=== PATIENT | female | born 1955 | race Caucasian/White ===

== ENCOUNTER 2018-09-26 14:47 | Emergency (ER) | payer OTHER, BC ==
--- OUTSIDE RECORDS SUMMARY | 2018-09-26 14:48 | XMS REPORT ---
:1955 Author [facility] Address [address] [place] [address] Dr. [address] [place] [address] Care Team Providers Name Role Phone Unavailable Unavailable Unavailable Problems This patient has no known problems. Allergies, Adverse Reactions, Alerts This patient has no known allergies or adverse reactions. Medications This patient has no known medications.
--- OUTSIDE RECORDS SUMMARY | 2018-09-26 14:48 | XMS REPORT | Summary of Care ---
:1955 Author Organization [facility] Address [address] [place] [address] Care Team Providers Name Role Phone Irineo Horan MD Primary Care Provider Reason for Visit Reason Comments Back Pain onset with low back pain Encounter Details Date Type Department Care Team Description 09/12/2018 Office Visit [facility] Family Irineo Horan Strain of lumbar Medicine - Ham Slaughter MD region, initial [address] [facility] [address] [facility] [address] encounter ([place], [place]x) [phone] Allergies Active Allergy Reactions Severity Noted Date Comments Codeine Nausea and/or Vomiting 09/12/2018 Sulfa (Sulfonamide Antibiotics) Unknown - See comments 03/14/2015 documented as of this encounter (statuses as of 09/12/2018) Medications Medication Sig Dispensed Refills Start Date End Date Status RABEprazole 20 mg Take 1 tablet by 30 tablet 12 10/12/2017 Active tabletIndications: mouth daily. Gastroesophageal reflux disease with esophagitis lisinopril 5 mg Take 1 tablet by 180 tablet 3 06/30/2018 Active tabletIndications: mouth 2 (two) Atypical chest pain, times daily. Essential hypertension, LANDRUM (dyspnea on exertion) methylPREDNISolone Take 21 tablets 21 Each 0 09/12/2018 Active (MEDROL, TANMAY,) 4 mg by mouth tabletsIndications: SEE-INSTRUCTIONS Strain of lumbar region, . follow package initial encounter directions ketorolac 10 mg Take 1 tablet by 30 tablet 0 09/12/2018 Active tabletIndications: mouth every 6 Strain of lumbar region, (six) hours as initial encounter needed (back pain). documented as of this encounter (statuses as of 09/12/2018) Active Problems Problem Noted Date Chronic GERD 04/08/2017 Globus sensation 04/08/2017 Essential hypertension 05/21/2015 documented as of this encounter (statuses as of 09/12/2018) Social History Tobacco Use Types Packs/Day Years Used Date Never Smoker Smokeless Tobacco: Never Used Alcohol Use Drinks/Week oz/Week Comments Yes occasional Sex Assigned at Date Recorded Not on file Job Start Date Occupation Industry Not on file Not on file Not on file Travel History Travel Start Travel End No recent travel history available. documented as of this encounter Last Filed Vital Signs Vital Sign Reading Time Taken Comments Blood Pressure 115/76 09/12/2018 10:43 AM CDT Pulse 73 09/12/2018 10:43 AM CDT Temperature 36.7 C (98 F) 09/12/2018 10:43 AM CDT Respiratory Rate 16 09/12/2018 10:43 AM CDT Oxygen Saturation - - Inhaled Oxygen Concentration - - Weight 83.5 kg (184 lb) 09/12/2018 10:43 AM CDT Height 157.5 cm (5' 2") 09/12/2018 10:43 AM CDT Body Mass Index 33.65 09/12/2018 10:43 AM CDT documented in this encounter Progress Notes Irineo Horan MD - 09/12/2018 10:45 AM CDT CC: low back pain on right side Rosalva is a 63 year old female Back Pain Location: Lumbar spine Quality: Aching Duration: 4 days Chronicity: New Relieved by: Nothing Ineffective treatments: NSAIDs Allergies Allergen Reactions Codeine Nausea and/or Vomiting Sulfa (Sulfonamide Antibiotics) Unknown - See comments Current Outpatient Medications Medication Sig Dispense Refill lisinopril 5 mg tablet Take 1 tablet by mouth 2 (two) times daily. 180 tablet 3 RABEprazole 20 mg tablet Take 1 tablet by mouth daily. 30 tablet 12 No current facility-administered medications for this visit. Past Medical History: Diagnosis Date Hypertension Past Surgical History: Procedure Laterality Date SECTION REMOVAL OF OVARY(S) Social History Socioeconomic History Marital status: Spouse name: Not on file Number of children: Not on file Years of education: Not on file Highest education level: Not on file Occupational History Not on file Social Needs Financial resource strain: Not on file Food insecurity: Worry: Not on file Inability: Not on file Transportation needs: Medical: Not on file Non-medical: Not on file Tobacco Use Smoking status: Never Smoker Smokeless tobacco: Never Used Substance and Sexual Activity Alcohol use: Yes Comment: occasional Drug use: No Sexual activity: Not on file Lifestyle Physical activity: Days per week: Not on file Minutes per session: Not on file Stress: Not on file Relationships Social connections: Talks on phone: Not on file Gets together: Not on file Attends buddhism service: Not on file Active member of club or organization: Not on file Attends meetings of clubs or organizations: Not on file Relationship status: Not on file Intimate partner violence: Fear of current or ex partner: Not on file Emotionally abused: Not on file Physically abused: Not on file Forced sexual activity: Not on file Other Topics Concern Not on file 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 BP 115/76 (BP Location: Left arm, Patient Position: Sitting, BP CUFF SIZE: Adult Medium) | Pulse 73 | Temp 36.7 C (98 F) (Tympanic) | Resp 16 | Ht 5 ' 2" (1.575 m) | Wt 184 lb (83.5 kg) | BMI 33.65 kg/m Physical Exam Constitutional: She is oriented to person, place, and time. She appears well- developed and well-nourished. HENT: Head: Normocephalic and atraumatic. Eyes: Pupils are equal, round, and reactive to light. Conjunctivae are normal. Neck: Normal range of motion. Neck supple. No JVD present. No tracheal deviation present. No thyromegaly present. Cardiovascular: Normal rate, regular rhythm, normal heart sounds and intact distal pulses. Exam reveals no gallop and no friction rub. No murmur heard. Pulmonary/Chest: Effort normal and breath sounds normal. No respiratory distress. She has no wheezes. She has no rales. She exhibits no tenderness. Abdominal: Soft. Bowel sounds are normal. She exhibits no distension and no mass. There is no tenderness. There is no rebound and no guarding. Musculoskeletal: She exhibits no edema. Lumbar back: She exhibits tenderness (right mid lumbar) and pain. Lymphadenopathy: She has no cervical adenopathy. Neurological: She is alert and oriented to person, place, and time. Skin: Skin is warm and dry. Diagnosis: 1. Strain of lumbar region, initial encounter methylPREDNISolone (MEDROL, TANMAY, ) 4 mg tablets ketorolac 10 mg tablet Follow up: prn Patient Care Team: Irineo Horan MD as PCP - General ([facility]-FAMILY MEDICINE) Plan of care, desired health behaviors, goals,& medication discussed with patient. Education resources & self management tools provided and reviewed with AVS. Patient/guardian/family verbalized understanding & agrees to plan of care. Barriers to care: None Ability to manage care: Good documented in this encounter Plan of Treatment Date Type Specialty Care Team Description 07/06/2019 Office Visit Cardiology Alfredo Mckinnon MD [address] [phone] Health Maintenance Due Date Last Done Comments HEPATITIS C (HCV) SCREEN 1955 DTaP,Tdap,and Td Vaccines (1 1976 - Tdap) Zoster Recombinant Vaccine 08/29/2007 (SHINGRIX) (1 of 2) MAMMOGRAM 11/18/2017 11/18/2016 (Previously completed) INFLUENZA VACCINE 10/16/2018 PAP SMEAR 11/19/2019 11/18/2016 (Previously completed) COLONOSCOPY 02/01/2028 01/31/2018, 10/25/2013 (Previously completed) PNEUMOCOCCAL 0-64 YEARS Aged Out No longer eligible based COMBINED SERIES on patient's age to complete this topic documented as of this encounter Results Not on filedocumented in this encounter Visit Diagnoses Diagnosis Strain of lumbar region, initial encounter - Primary documented in this encounter Insurance Payer Benefit Plan Subscriber ID Effective Dates Phone Address Type / Group AETNA AETNA HMO [id number] 2013-Michel lainez [facility] [id number] 2017-Aleksandra [phone] [address] PPO/POS [place] - OUT OF nt 7 [id number] [place] [address] documented as of this encounter
--- OUTSIDE RECORDS SUMMARY | 2018-09-26 14:48 | XMS REPORT | Clinical Summary ---
:1955 Author Organization [facility] Address [address] [place] [address] Care Team Providers Name Role Phone Asked, No Pcp Primary Care Provider Unavailable Allergies Active Allergy Reactions Severity Noted Date Comments Morphine Other (See Comments) 09/01/2018 Vomiting, can't remember anything Sulfa (Sulfonamide Rash Low 03/14/2015 Antibiotics) Medications Medication Sig Dispensed Refills Start Date End Date Status lisinopril Take 5 mg by 3 07/04/2018 Active (PRINIVIL,ZESTRIL) 5 mg mouth 2 (two) tablet times a day. RABEprazole (ACIPHEX) 20 Take 20 mg by 12 08/01/2018 Active mg EC tablet mouth daily. multivitamin with Take 1 tablet 0 Active minerals (HAIR,SKIN AND by mouth daily. NAILS ORAL) multivit-min/folic Take 1 tablet 0 Active acid/[id number] (ALIVE by mouth daily. WOMEN'S GUMMY VITAMINS ORAL) diphenhydramine HCl Take 1 tablet 0 Active (ALLERGY ORAL) by mouth daily. Active Problems Not on file Encounters Date Type Specialty Care Team Description 09/23/2018 Orders Only General Surgery Summer Hogan Gastroesophageal reflux disease, esophagitis presence not specified (Primary Dx); ALYSSA Wood Hiatal hernia 09/01/2018 Office Visit General Surgery Sha Vee MD Hiatal hernia ( Primary Dx); Gastroesophageal reflux disease, esophagitis presence not specified 08/22/2018 Documentation General Surgery Summer Hogan MA 03/14/2018 Telephone General Surgery Sha Vee MD 03/14/2018 Telephone General Surgery Sha Vee MD after 09/25/2017 Family History Medical History Relation Name Comments Graves' disease Brother Dementia Father Hypertension Father Leukemia Father Liver disease Father Stroke Father Cancer Mother Hypertension Mother Heart attack Sister Hypertension Sister Relation Name Status Comments Brother Alive Father Mother Sister Alive Social History Tobacco Use Types Packs/Day Years Used Date Never Smoker Smokeless Tobacco: Never Used Alcohol Use Drinks/Week oz/Week Comments Yes Alcohol Habits Answer Date Recorded How often do you have a drink containing alcohol? 2-3 times a week 09/01/2018 How many drinks containing alcohol do you have on a Not asked typical day when you are drinking? How often do you have six or more drinks on one Not asked occasion? Sex Assigned at Date Recorded Not on file Job Start Date Occupation Industry Not on file Not on file Not on file Travel History Travel Start Travel End No recent travel history available. Last Filed Vital Signs Vital Sign Reading Time Taken Blood Pressure 119/83 09/01/2018 12:03 PM CDT Pulse 74 09/01/2018 12:03 PM CDT Temperature 36.6 C (97.9 F) 09/01/2018 12:03 PM CDT Respiratory Rate 18 09/01/2018 12:03 PM CDT Oxygen Saturation 98% 09/01/2018 12:03 PM CDT Inhaled Oxygen Concentration - - Weight 83.5 kg (184 lb) 09/01/2018 12:03 PM CDT Height 157.5 cm (5' 2") 09/01/2018 12:03 PM CDT Body Mass Index 33.65 09/01/2018 12:03 PM CDT Plan of Treatment Health Maintenance Due Date Last Done Comments BREAST CANCER SCREENING 08/29/2007 COLONOSCOPY SCREENING 08/29/2007 SHINGLES VACCINES (#1) 08/29/2007 INFLUENZA VACCINE 09/15/2018 Results Not on fileafter 09/25/2017 Advance Directives Patient has advance care planning documents on file. For more information, please contact:[place] [address]
--- OUTSIDE RECORDS SUMMARY | 2018-09-26 14:49 | XMS REPORT | Summary of Care ---
:1955 Author Organization [facility] Address [address] [place] [address] Care Team Providers Name Role Phone Irineo Horan MD Primary Care Provider Reason for Visit Reason Comments Back Pain onset with low back pain Encounter Details Date Type Department Care Team Description 09/12/2018 Office Visit [facility] Family Irineo Horan Strain of lumbar Medicine - Ham Slaughter MD region, initial [address] [facility] [address] encounter ([place], [place]x) [phone] Allergies Active Allergy Reactions Severity Noted Date [...] file Gets together: Not on file Attends catholic service: Not on file Active member of [...] Cardiology Alfredo Mckinnon MD [address] [phone] Health Maintenance Due Date Last Done Comments [...] Address Type / Group AETNA AETNA HMO [id number] 2013-Michel lainez [facility] [id number] 2017-Aleksandra [phone] [address] PPO/POS [place] - OUT OF nt 7 [id number] [place] [address] documented as of this encounter
--- OUTSIDE RECORDS SUMMARY | 2018-09-26 14:49 | XMS REPORT | Summary of Care ---
:1955 Author Organization [facility] Address [address] [place] [address] Care Team Providers Name Role Phone Irineo Horan MD Primary Care Provider Reason for Referral Radiology Services (Routine) Status Reason Specialty Diagnoses / Referred By Referred To Procedures Contact Contact New Request Diagnostic Diagnoses RUQ pain Irineo Horan Radiology Procedures US GALL BLADDER MD Sukhjinder [address] [place] [address] [place] [address] Reason for Visit Reason Comments Abdominal Pain onset month ago with RLQ pain, nausea at times Encounter Details Date Type Department Care Team Description 09/23/2018 Office Visit [facility] Family Irineo Horan RUQ pain ( Primary Dx) Medicine - Ham Slaughter MD [address] [place] [address] [place] [address] [place] [phone] Allergies Active Allergy Reactions Severity Noted Date Comments Codeine Nausea and/or Vomiting 09/12/2018 Sulfa (Sulfonamide Antibiotics) Unknown - See comments 03/14/2015 documented as of this encounter (statuses as of 09/23/2018) Medications Medication Sig Dispensed Refills Start End Date Status Date RABEprazole 20 mg Take 1 tablet 30 tablet 12 Active tabletIndications: by mouth 8 Gastroesophageal daily. reflux disease with esophagitis lisinopril 5 mg Take 1 tablet 180 tablet 3 Active tabletIndications: by mouth 2 9 Atypical chest pain, (two) times Essential daily. hypertension, LANDRUM (dyspnea on exertion) naproxen sodium Take 220 mg by 0 Active (ALEVE) 220 mg tablet mouth 2 (two) times daily with meals. methylPREDNISolone Take 21 21 Each 0 09/24/19 Discontinued (MEDROL, TANMAY,) 4 mg tablets by 9 19 tabletsIndications: mouth Strain of lumbar SEE-INSTRUCTIO region, initial NS. follow encounter package directions ketorolac 10 mg Take 1 tablet 30 tablet 0 09/24/19 Discontinued tabletIndications: by mouth every 9 Strain of lumbar 6 (six) hours region, initial as needed encounter (back pain). documented as of this encounter (statuses as of 09/23/2018) Active Problems Problem Noted Date Chronic GERD 04/08/2017 Globus sensation 04/08/2017 Essential hypertension 05/21/2015 documented as of this encounter (statuses as of 09/23/2018) Social History Tobacco Use Types Packs/Day Years [...] Sign Reading Time Taken Comments Blood Pressure 119/73 09/23/2018 4:12 PM CDT Pulse 83 09/23/2018 4:12 PM CDT Temperature 36.9 C (98.4 F) 09/23/2018 4:12 PM CDT Respiratory Rate 16 09/23/2018 4:12 PM CDT Oxygen Saturation - - Inhaled Oxygen Concentration - - Weight 83 kg (183 lb) 09/23/2018 4:12 PM CDT Height 157.5 cm (5' 2") 09/23/2018 4:12 PM CDT Body Mass Index 33.47 09/23/2018 4:12 PM CDT documented in this encounter Patient Instructions Patient InstructionsIrineo Horan MD - 09/23/2018 4:15 PM CDTNo dairy; Nothing fat, rich or greasy. Use Tylenol and Tums for pain documented in this encounter Progress Notes Irineo Horan MD - 09/23/2018 4:15 PM CDT CC: pain RUQ Rosalva is a 63 year old female Abdominal Pain Pain location: RUQ Pain quality: aching and gnawing Pain radiates to: Does not radiate Allergies Allergen Reactions Codeine Nausea and/or Vomiting Sulfa (Sulfonamide Antibiotics) Unknown - See comments Current Outpatient Medications Medication Sig Dispense Refill naproxen sodium (ALEVE) 220 mg tablet Take 220 mg by mouth 2 (two) times daily with meals. lisinopril 5 mg tablet Take 1 tablet [...] file Gets together: Not on file Attends moravian service: Not on file Active member of [...] Mother breast Leukemia Father Review of Systems Gastrointestinal: Positive for abdominal pain. BP 119/73 (BP Location: Left arm, Patient Position: Sitting, BP CUFF SIZE: Adult Medium) | Pulse 83 | Temp 36.9 C (98.4 F) (Tympanic) | Resp 16 | Ht 5' 2" (1.575 m) | Wt 183 lb (83 kg) | BMI 33.47 kg/m Physical Exam Constitutional: She is oriented [...] is no rebound and no guarding. Musculoskeletal: Normal range of motion. She exhibits no edema or tenderness. Lymphadenopathy: She has no cervical adenopathy. Neurological: She is alert and oriented to person, place, and time. Skin: Skin is warm and dry. Diagnosis: 1. RUQ pain US GALL BLADDER Follow up: prn Patient Care Team: Irineo [...] Visit Cardiology Alfredo Mckinnon MD [address] [place] [address] [place] [phone] Name Type Priority Associated Diagnoses Order Schedule US GALL BLADDER IMAGING Routine RUQ pain Expected: 09/23/2018, Expires: 09/24/2019 Health Maintenance Due Date Last Done Comments [...] filedocumented in this encounter Visit Diagnoses Diagnosis RUQ pain - Primary Abdominal pain, right upper quadrant documented in this encounter Insurance Payer Benefit Plan Subscriber ID Effective Dates Phone Address Type / Group AETNA AETNA O [id number] 2013-Michel O t BCBS OF [facility] [place] [id number] 2017-Aleksandra [phone] [address] PPO/POS [place] - OUT OF 7 [id number] [place] [address] Guarantor Name Account Type Relation to Date of Phone Billing Patient Address Rosalva Segal Personal/Family Self 1955 [address] [facility] [address]Home[facility] [place] [address] documented as of this encounter
--- OUTSIDE RECORDS SUMMARY | 2018-09-26 14:49 | XMS REPORT | Summary of Care ---
:1955 Author Organization [facility] Address [address] [place] [address] Care Team Providers Name Role Phone Irineo Horan MD Primary Care Provider Reason for Visit Reason Comments Back Pain onset with low back pain Encounter Details Date Type Department Care Team Description 09/12/[address] [facility] Family Irineo Horan Strain of lumbar Medicine - Ham Slaughter MD region, initial [address] [facility] [address] [facility] [address] encounter ([place], [place]) [phone] Allergies Active Allergy Reactions Severity Noted Date [...] file Gets together: Not on file Attends muslim service: Not on file Active member of [...] Cardiology Alfredo Mckinnon MD [address] [phone] Health Maintenance Due Date Last Done Comments [...] Address Type / Group AETNA AETNA HMO [id number] 2013-Michel lainez [facility] [id number] 2017-Aleksandra [phone] [address] PPO/POS [place] - OUT OF nt 7 [id number] [place] [address] documented as of this encounter
--- OUTSIDE RECORDS SUMMARY | 2018-09-26 14:49 | XMS REPORT | Summary of Care ---
:1955 Author Organization [facility] Address [address] [place] [address] Care Team Providers Name Role Phone Irineo Horan MD Primary Care Provider Reason for Referral Radiology Services (Routine) Status Reason Specialty Diagnoses / Referred By Referred To Procedures Contact Contact New Request Diagnostic Diagnoses RUQ pain Irineo Horan Radiology Procedures US GALL BLADDER MD Sukhjinder [address] [place] [address] [place] [phone] Reason for Visit Reason Comments Abdominal Pain onset month ago with RLQ pain, nausea at times Encounter Details Date Type Department Care Team Description 09/23/2018 Office Visit [facility] Family Irineo Horan RUQ pain ( Primary Dx) Medicine - Ham Slaughter MD [address] [place] [address] [address] [place] [address] [place] [phone] Allergies Active Allergy Reactions Severity Noted [...] file Gets together: Not on file Attends yazidi service: Not on file Active member of [...] Visit Cardiology Alfredo Mckinnon MD [address] [place] [address] [place] [phone] Name Type Priority Associated Diagnoses Order [...] Address Type / Group AETNA AETNA O [id number] 2013-Michel O t BCBS OF [facility] [place] [id number] 2017-Aleksandra [phone] [address] PPO/POS [place] - OUT OF 7 [id number] [place] [address] documented as of this encounter
--- OUTSIDE RECORDS SUMMARY | 2018-09-26 14:49 | XMS REPORT | Summary of Care ---
:1955 Author Organization [facility] Address [address] [place] [address] Care Team Providers Name Role Phone Irineo Horan MD Primary Care Provider Reason for Referral Radiology Services (Routine) Status Reason Specialty Diagnoses / Referred By Referred To Procedures Contact Contact New Request Diagnostic Diagnoses RUQ pain Irineo Horan Radiology Procedures US GALL BLADDER MD Sukhjinder [address] [place] [address] [place] [address] Reason for Visit Reason Comments Abdominal Pain onset month ago with RLQ pain, nausea at times Encounter Details Date Type Department Care Team Description 09/23/2018 Office Visit [facility] Family Irineo Horan RUQ pain ( Primary Dx) Medicine - Ham Slaughter MD [address] [place] [address] [address] [place] [address] [place] [phone] Allergies Active Allergy Reactions Severity Noted [...] file Gets together: Not on file Attends jewish service: Not on file Active member of [...] Visit Cardiology Alfredo Mckinnon MD [address] [place] [address] [place] [phone] Name Type Priority Associated Diagnoses Order [...] Address Type / Group AETNA AETNA O [id number] 2013-Michel O t BCBS OF [facility] [place] [id number] 2017-Aleksandra [phone] [address] PPO/POS [place] - OUT OF 7 [id number] [place] [address] documented as of this encounter
[2018-09-26 16:06] LABS: Urine Blood TRACE (NEG); Urine Glucose NEGATIVE (NEG); Urine Protein NEGATIVE (NEG); Urine Specific Gravity 1.025 (1.005-1.030); Urine pH 5.5 (5.0-7.0)
[2018-09-26 16:24] LABS: Urine Bacteria <20 /HPF (<20); Urine Culture Reflex Order REFLEXED; Urine Mucus 1+ /HPF (NONE SEEN); Urine RBC <5 /HPF (NONE SEEN)
--- NOTE | 2018-09-26 17:02 | RAD REPORT ---
EXAM DESCRIPTION: CT - Stone Protocol - 09/26/2018 4:46 pm CLINICAL HISTORY: Abdominal pain COMPARISON: CT chest January 2018 TECHNIQUE: Axial 3 millimeter thick images of the abdomen and pelvis obtained. No IV contrast was gi sloane because of allergy, abnormal renal function, patient refusal or physician request. No oral contra st. All CT scans are performed using dose optimization technique as appropriate and may include automated exposure control or mA/KV adjustment according to patient size. FINDINGS: No acute lung base finding. Stranding in the base of the lingula matches the prior study. No pericardial thickening or effusion. The liver, spleen and pancreas show no suspicious findings on non-contrast imaging. No acute gallblad megha finding. No biliary tree dilatation. No hydronephrosis or suspicious renal mass. No significant adrenal finding. Isodense renal masses an d pyelonephritis cannot be excluded in the absence of IV contrast. The urinary bladder is without sig nificant finding. Uterus and ovaries show no suspicious findings. Mild circumferential wall thickening and dilatation seen in the distal esophagus. This matches the pr ior examination. Along the right lateral margin of the distal esophagus near the GE junction there is focal dilatation 5-6 cm in diameter. This contains an air-fluid level. This filled with oral contras t on the prior examination. It is uncertain if this is an enlarged diverticulum off of the distal eso phagus or part of a gastric cardia diverticulum with small hiatal hernia. Findings in this region are not clearly different from January 2018 and no active process seen. Intraabdominal portion of the s tomach shows no wall thickening or mass. No small bowel dilatation seen. No dilation of the colon. Si gmoid diverticulosis present without diverticulitis. Small mesenteric lymph nodes are seen in the rig ht lower quadrant and central mesentery. No bulky lymphadenopathy. No free air, free fluid or inflammatory stranding. No hernia or omental thickening. No suspicious bony findings. IMPRESSION: No bowel obstruction, free air or surgically emergent finding. No acute or active process in the abdomen or pelvis. There is circumferential wall thickening of the distal esophagus along with a 5-6 centimeter divertic ulum or pseudodiverticulum projecting from the right lateral margin near the GE junction. Patient has a small hiatal hernia. The area of saccular dilatation potentially is from the gastric cardia. This saccular dilatation has an air-fluid level and opacified with contrast on the prior study. This finding may contribute to patient reflux and upper abdominal pain symptoms. Full assessment is limited is the absence of IV contrast.
--- NOTE | 2018-09-26 17:12 | ER ---
Nurse's Notes [facility] Name: Rosalva Segal Age: 63 yrs Sex: Female : 1955 Arrival Date: 09/26/2018 Time: 14:53 Bed 18 Private MD: Irineo Horan Diagnosis: Hiatal hernia Presentation: 09/26 14:55 Presenting complaint: Patient states: a month ago, i started experiencing a low back hj pain that migrated to my R upper abd area, reports nausea; denies fever and chills;. Transition of care: patient was not received from another setting of care. Onset of symptoms was September 26, 2018. Risk Assessment: Do you want to hurt yourself or someone else? Patient reports no desire to harm self or others. Initial Sepsis Screen: Does the patient meet any 2 criteria? No. Patient's initial sepsis screen is negative. Does the patient have a suspected source of infection? No. Patient's initial sepsis screen is negative. Care prior to arrival: None. 14:55 Method Of Arrival: Ambulatory 14:55 Acuity: MI 3 hj Triage Assessment: 15:00 General: Appears in no apparent distress. comfortable, Behavior is cooperative, bp appropriate for age, anxious. Pain: Complains of pain in back. EENT: No deficits noted. Neuro: No deficits noted. Cardiovascular: No deficits noted. Respiratory: No deficits noted. GI: No signs and/or symptoms were reported involving the gastrointestinal system. : Reports pain in lower back. Derm: No deficits noted. Musculoskeletal: No deficits noted. Historical: - Allergies: 14:58 Sulfa (Sulfonamide Antibiotics); hj 14:58 Codeine; hj 14:58 Morphine; hj - PMHx: 14:58 Hypertension; GERD; hj - PSHx: 14:58 ovarian; ; hj - Immunization history:: Adult Immunizations up to date. - Social history:: Smoking status: Patient/guardian denies using tobacco. - Ebola Screening: : No symptoms or risks identified at this time. Screenin:49 Abuse screen: Denies threats or abuse. Denies injuries from another. Nutritional bp screening: No deficits noted. Tuberculosis screening: No symptoms or risk factors identified. Fall Risk None identified. Assessment: 15:48 General: SEE TRIAGE NOTE. bp 16:42 Reassessment: ALL CURRENT ORDERS COMPLETED, CT PENDING. bp 17:43 Reassessment: PT D/C HOME AMBULATORY WITH FAMILY, DX WITH HIATAL HERNIA. bp Vital Signs: 14:58 BP 126 / 75; Pulse 80; Resp 18; Temp 98.9(TE); Pulse Ox 98% on R/A; Weight 81.65 kg; hj Height 5 ft. 2 in. (157.48 cm); Pain 9/10; 17:20 BP 130 / 79; Pulse 76; Resp 16; Temp 98.9; Pulse Ox 98% ; bp 14:58 Body Mass Index 32.92 (81.65 kg, 157.48 cm) hj ED Course: 14:53 Patient arrived in ED. rg4 14:54 Irineo Horan MD is Private Physician. rg4 14:56 Triage completed. hj 14:58 Arm band placed on left wrist. hj 15:14 Anton[facility]C [facility]. snw 15:15 Amilcar Amos MD is Attending Physician. snw 15:39 Logan Keane, ZHANE is Primary Nurse. bp 15:49 Patient has correct armband on for positive identification. Bed in low position. Call bp light in reach. Side rails up X2. 16:49 CT Stone Protocol In Process Unspecified. EDMS 17:10 Luke Palomares MD is Referral Physician. snw 17:43 No provider procedures requiring assistance completed. Patient did not have IV access bp during this emergency room visit. Administered Medications: 17:30 Drug: TORadol 30 mg Route: IM; Site: left deltoid; bp 17:43 Follow up: Response: Pain is decreased bp 17:30 Drug: Bentyl 20 mg Route: PO; bp 17:43 Follow up: Response: Pain is decreased bp Outcome: 17:11 Discharge ordered by . snw 17:43 Discharged to home ambulatory, with family. bp 17:43 Condition: stable 17:43 Discharge instructions given to patient, Instructed on discharge instructions, follow up and referral plans. medication usage, Demonstrated understanding of instructions, follow-up care, medications, Prescriptions given X 2. 17:44 Patient left the ED. bp Signatures: Dispatcher [employer] EDMS Antonella Ball FNP-C MARKETING SUPPORT COORDINATOR-Csnw Aris Davis RN RN Peyton Matias rg4 Logan Keane, RN RN bp Corrections: (The following items were deleted from the chart) 14:59 14:58 Pulse 80bpm; Resp 18bpm; Pulse Ox 98% RA; Temp 98.9F Temporal; 81.65 kg; Height 5 hj ft. 2 in.; BMI: 32.9; Pain 9/10; hj
--- NOTE | 2018-09-26 17:13 | EDPHYS ---
Physician Documentation [facility] Name: Rosalva Segal Age: 63 yrs Sex: Female : 1955 Arrival Date: 09/26/2018 Time: 14:53 Bed 18 Private MD: Irineo Horan ED Physician Amilcar Amos HPI: 09/26 16:43 This 63 yrs old Female presents to ER via Ambulatory with complaints of Low snw Back Pain, Flank Pain. 16:43 The patient presents with pain that is acute, with no known mechanism of injury. The snw symptoms are located in the right low back. The pain radiates to the suprapubic area and right inguinal area. The problem was sustained from unknown cause. Onset: The symptoms/episode began/occurred gradually, 1 month(s) ago. Associated signs and symptoms: Pertinent positives: abdominal pain, Pertinent negatives: dysuria, fever, vomiting. Severity of symptoms: At their worst the symptoms were moderate. It is unknown whether or not the patient has had similar symptoms in the past. The patient has been recently seen by a physician: the patient's primary care provider, with similar presenting complaints, pt has seen PCP x 2 for similar s/s over past month, given medications for back pain without relief.. no fever, pt has had right oophorectomy. Historical: - Allergies: 14:58 Sulfa (Sulfonamide Antibiotics); hj 14:58 Codeine; hj 14:58 Morphine; hj - PMHx: 14:58 Hypertension; GERD; hj - PSHx: 14:58 ovarian; ; hj - Immunization history:: Adult Immunizations up to date. - Social history:: Smoking status: Patient/guardian denies using tobacco. - Ebola Screening: : No symptoms or risks identified at this time. ROS: 16:43 Constitutional: Negative for fever, chills, and weight loss, Eyes: Negative for injury, snw pain, redness, and discharge, ENT: Negative for injury, pain, and discharge, Neck: Negative for injury, pain, and swelling, Cardiovascular: Negative for chest pain, palpitations, and edema, Respiratory: Negative for shortness of breath, cough, wheezing, and pleuritic chest pain, Back: Negative for injury and pain, : Negative for injury, bleeding, discharge, and swelling, MS/Extremity: Negative for injury and deformity, Skin: Negative for injury, rash, and discoloration, Neuro: Negative for headache, weakness, numbness, tingling, and seizure. 16:43 Abdomen/GI: Positive for abdominal pain, nausea, of the posterior aspect of right lateral abdomen and right lower quadrant, Negative for vomiting, diarrhea, constipation, fever. Exam: 16:42 Constitutional: This is a well developed, well nourished patient who is awake, alert, snw and in no acute distress. Head/Face: Normocephalic, atraumatic. Eyes: Pupils equal round and reactive to light, extra-ocular motions intact. Lids and lashes normal. Conjunctiva and sclera are non-icteric and not injected. Cornea within normal limits. Periorbital areas with no swelling, redness, or edema. ENT: Nares patent. No nasal discharge, no septal abnormalities noted. Tympanic membranes are normal and external auditory canals are clear. Oropharynx with no redness, swelling, or masses, exudates, or evidence of obstruction, uvula midline. Mucous membranes moist. Neck: Trachea midline, no thyromegaly or masses palpated, and no cervical lymphadenopathy. Supple, full range of motion without nuchal rigidity, or vertebral point tenderness. No Meningismus. Chest/axilla: Normal chest wall appearance and motion. Nontender with no deformity. No lesions are appreciated. Cardiovascular: Regular rate and rhythm with a normal S1 and S2. No gallops, murmurs, or rubs. Normal PMI, no JVD. No pulse deficits. Respiratory: Lungs have equal breath sounds bilaterally, clear to auscultation and percussion. No rales, rhonchi or wheezes noted. No increased work of breathing, no retractions or nasal flaring. Back: No spinal tenderness. No costovertebral tenderness. Full range of motion. Skin: Warm, dry with normal turgor. Normal color with no rashes, no lesions, and no evidence of cellulitis. MS/ Extremity: Pulses equal, no cyanosis. Neurovascular intact. Full, normal range of motion. Neuro: Awake and alert, GCS 15, oriented to person, place, time, and situation. Cranial nerves II-XII grossly intact. Motor strength 5/5 in all extremities. Sensory grossly intact. Cerebellar exam normal. Normal gait. Psych: Awake, alert, with orientation to person, place and time. Behavior, mood, and affect are within normal limits. 16:42 Abdomen/GI: Inspection: abdomen appears normal, Bowel sounds: normal, Palpation: moderate abdominal tenderness, in the posterior aspect of right lateral abdomen and right lower quadrant. Vital Signs: 14:58 BP 126 / 75; Pulse 80; Resp 18; Temp 98.9(TE); Pulse Ox 98% on R/A; Weight 81.65 kg; hj Height 5 ft. 2 in. (157.48 cm); Pain 9/10; 17:20 BP 130 / 79; Pulse 76; Resp 16; Temp 98.9; Pulse Ox 98% ; bp 14:58 Body Mass Index 32.92 (81.65 kg, 157.48 cm) hj MDM: 15:38 Patient medically screened. [place] 17:16 Data reviewed: vital signs, nurses notes. Data interpreted: Pulse oximetry: on room air snw is 98 %. Interpretation: normal. Counseling: I had a detailed discussion with the patient and/or guardian regarding: the historical points, exam findings, and any diagnostic results supporting the discharge/admit diagnosis, lab results, radiology results, the need for outpatient follow up, to return to the emergency department if symptoms worsen or persist or if there are any questions or concerns that arise at home. Special discussion: Based on the history and exam findings, there is no indication for further emergent testing or inpatient evaluation. I discussed with the patient/guardian the need to see the prepress supervisor for further evaluation of the symptoms. I discussed with the patient/guardian the need to see the primary care provider for further evaluation of the symptoms. 09/26 15:16 Order name: Urine Culture [facility] 09/26 15:16 Order name: Urine Microscopic Only; Complete Time: 16:26 snw 09/26 15:52 Order name: Urine Dipstick--Ancillary (enter results); Complete Time: 16:10 bd 09/26 16:31 Order name: CT Stone Protocol; Complete Time: 17:05 snw 09/26 15:16 Order name: Urine Dipstick-Ancillary (obtain specimen); Complete Time: 15:51 snw Administered Medications: 17:30 Drug: TORadol 30 mg Route: IM; Site: left deltoid; bp 17:43 Follow up: Response: Pain is decreased bp 17:30 Drug: Bentyl 20 mg Route: PO; bp 17:43 Follow up: Response: Pain is decreased bp Disposition: 09/27 07:23 Co-signature as Attending Physician, Amilcar Amos MD. rn Disposition: 09/26/18 17:11 Discharged to Home. Impression: Hiatal hernia. - Condition is Stable. - Discharge Instructions: Abdominal Pain, Adult, Hiatal Hernia, Heat Therapy. - Prescriptions for Bentyl 20 mg Oral Tablet - take 1 tablet by ORAL route every 6 hours As needed; 20 tablet. Diclofenac Sodium 75 mg Oral Tablet Sustained Release - take 1 tablet by ORAL route 2 times per day; 30 tablet. - Medication Reconciliation Form, Thank You Letter, Antibiotic Education, Prescription Opioid Use form. - Follow up: Luke Palomares MD; When: 2 - 3 days; Reason: Recheck today's complaints, Continuance of care, Re-evaluation by your physician. Signatures: Dispatcher [employer] EDKirill Gray MD MD cha Therrien, Shelly, INORGANIC CHEMIST-C INORGANIC CHEMIST-Csnw Amilcar Amos MD MD rn Joaquin, Henry, RN RN hj Peltier, Brian, RN RN bp Corrections: (The following items were deleted from the chart) 09/26 17:44 17:11 09/26/2018 17:11 Discharged to Home. Impression: Hiatal hernia. Condition is bp Stable. Forms are Medication Reconciliation Form, Thank You Letter, Antibiotic Education, Prescription Opioid Use. Follow up: Luke Palomares; When: 2 - 3 days; Reason: Recheck today's complaints, Continuance of care, Re-evaluation by your physician. snw
[2018-09-26] MEDS ORDERED: DICYCLOMINE HCL 10 MG CAP ONE (17:34)
[2018-09-26] MEDS ORDERED: KETOROLAC 30 MG/ML INJ ONE (17:34)
== END 2018-09-26 17:44 | disposition home or self-care (01) ==
LOC: ER 14:47
DX: K44.9 Diaphragmatic hernia without obstruction or gangrene (principal); I10 Essential (primary) hypertension; Z88.2 Allergy status to sulfonamides; Z88.5 Allergy status to narcotic agent
CPT/HCPCS: 74176; 76377; 81003; 81015; 87086; 87088; 96372; 99283